=== PATIENT | male | born 1960 | race Hispanic/Latino ===

== ENCOUNTER → 2021-03-30 | Outpatient (CLI) | payer OTHER ==
[~2021-03-30] VITALS: Ht 167.6 cm; Wt 108.4 kg
[~2021-03-30] MED LIST: ALBU8.5H8 IH; AMLO-257 PO; ATOR40TA69 PO; CLOP75TA32 PO; ISOS60TA77 PO; METO-408 PO; REGADENOSON 0.4 MG/5 ML PF SYG IVP SCH; SERT-438 PO; VALS320T16 PO
== END | disposition home or self-care (01) ==
LOC: OIH 08:59
PROVIDERS: ATTEND Internal Medicine Cardiovascular Disease
DX: I25.10 Atherosclerotic heart disease of native coronary artery without angina pectoris (principal); I10 Essential (primary) hypertension; R94.39 Abnormal result of other cardiovascular function study; R07.89 Other chest pain; R55 Syncope and collapse
CPT/HCPCS: 78452; 93017; 96374; A9500 ×2; J2785 ×2

== ENCOUNTER 2021-04-07 05:40 | Day surgery (SDC) | payer OTHER ==
[2021-04-06 16:00] LABS: APPEARANCE,URINE Clear (CLEAR); BILIRUBIN,URINE Small (NEGATIVE); COLOR,URINE Dark Yellow (YELLOW); GLUCOSE, URINE (UA) Negative (NEGATIVE); KETONES,URINE Trace mg/dL (NEGATIVE); LEUKOCYTE ESTERASE ,URINE Trace (NEGATIVE); NITRATE,URINE Negative (NEGATIVE); OCCULT BLOOD,URINE Negative (NEGATIVE); PH,URINE 5.5 (5.0-8.0); PROTEIN,URINE POS 1+ mg/dL (NEGATIVE)
[2021-04-06 16:11] LABS: BASOPHILS % (AUTO) 0.8 % (0.0-5.0); EOSINOPHILS % (AUTO) 3.5 % (0.0-8.0); HEMATOCRIT 39.8 % (42-54); LYMPHOCYTES % (AUTO) 18.9 % (21.0-51.0); MEAN CORPUSCULAR HEMOGLOBIN 31.2 pg (27.0-33.0); MEAN CORPUSCULAR HGB CONC 34.7 g/dL (32.0-36.0); MONOCYTES % (AUTO) 9.9 % (3.0-13.0); NEUTROPHILS % (AUTO) 66.4 % (40.0-77.0); PLATELET COUNT (AUTO) 284 K/uL (130-400); RED BLOOD CELL COUNT(AUTO) 4.42 MIL/uL (4.50-6.20); RED CELL DISTRIBUTION WIDTH 12.6 % (11.0-15.5); WHITE BLOOD COUNT (AUTO) 9.3 K/uL (4.8-10.8)
[2021-04-06 16:17] LABS: BACTERIA,URINE Few /HPF (None Seen); MUCUS,URINE Moderate LPF (None Seen); RBC,URINE 0-1 /HPF (0-1); SQUAMOUS EPITHELIAL CELL,UR Few /HPF (0-2)
[2021-04-06 16:28] LABS: CREATININE 1.2 mg/dL (0.5-1.5); POTASSIUM 3.8 mmol/L (3.5-5.1)
[2021-04-06 16:40] LABS: INR 1.03 (0.85-1.15); PROTHROMBIN TIME 11.2 SEC (9.6-11.6)
[2021-04-06 16:41] LABS: PARTIAL THROMBOPLASTIN TIME 24.9 SEC (26.3-35.5)
[2021-04-06 16:54] VITALS: BP 148/78
[~2021-04-07] VITALS: Ht 167.6 cm; Wt 107.5 kg
[2021-04-07] VITALS (12 sets, daily range): BP systolic 100–185; BP diastolic 47–85
[~2021-04-07 05:40] MED LIST changes: -REGADENOSON 0.4 MG/5 ML PF SYG IVP SCH
[2021-04-07] MEDS ORDERED: IOHEXOL-350 50ML VIAL IV ONE (07:03)
[2021-04-07] MEDS ORDERED: IOHEXOL 350 MG/ML 100ML INFUS..BTL IV ONE (07:03)
[2021-04-07] MEDS ORDERED: NITROGLYCERIN 2 MG VIAL IV ONE (07:03)
[2021-04-07] MEDS ORDERED: LIDOCAINE HCL 400MG/20ML VIAL ONE (07:03)
[2021-04-07] MEDS ORDERED: MIDAZOLAM HCL 1 MG/ML 2ML VIAL ONE (07:27)
[2021-04-07] MEDS ORDERED: 0.9%NACL 1000ML 1,000 ML IV SCH (08:00)
== END 2021-04-07 12:15 | disposition home or self-care (01) ==
LOC: DAH 05:40
PROVIDERS: ATTEND Internal Medicine Cardiovascular Disease
DX: I25.118 Atherosclerotic heart disease of native coronary artery with other forms of angina pectoris (principal); J44.9 Chronic obstructive pulmonary disease, unspecified; E78.5 Hyperlipidemia, unspecified; R94.39 Abnormal result of other cardiovascular function study; Z79.01 Long term (current) use of anticoagulants; Z79.899 Other long term (current) drug therapy
CPT/HCPCS: 36415; 71045; 80048; 81001; 85025; 85610; 85730; 93005; 93458; A4215; A4216; A4221; A4222; A4223 ×3; A4606; A4663; C1760; C1894; J1644; J2250; J3490 ×2; J7030; Q9965; Q9967 ×2; 99156; 99157